=== PATIENT | male | born 1995 | race Caucasian/White ===

== ENCOUNTER 2017-01-30 02:18 | Emergency (ER) | payer OTHER ==
[~2017-01-30] VITALS: Ht 180.3 cm; Wt 74.0 kg
[2017-01-30 02:29] VITALS: TEMP 37.4; Ht 180.3 cm; Wt 74.0 kg
[2017-01-30] MEDS ORDERED: XYLOCAINE 1%/SOD BICARB 20 ML VIAL INFIL ONE (02:45)
[2017-01-30] MEDS ORDERED: ACETAMINOPHEN 500 MG TAB PO STA (03:16)
[2017-01-30] MEDS ORDERED: AMOXICIL/CLAVU 875MG HOME PACK PO ONE (05:30)
[2017-01-30] MEDS ORDERED: AMOX875T PO (05:30)
[2017-01-30 05:49] VITALS: BP 103/82; PULSE 101; O2SAT 97
--- NOTE | 2017-01-30 07:53 | DIAGNOSTIC IMAGING REPORT ---
CT SCAN OF THE FACIAL BONES WITHOUT IV CONTRAST CLINICAL HISTORY: Fall. Facial injury. COMPARISON STUDY: CT of the brain performed concurrently on 01/30/2017. TECHNIQUE: High-resolution CT scan of the facial bones is performed. Images are reviewed in the axial, sagittal, and coronal planes. IV contrast was not administered for this examination. A dose lowering technique was utilized adhering to the principles of ALARA. CT DOSE: 852.74 mGy.cm FINDINGS: The skeletal structures are well mineralized. There is no evidence of facial bone fracture. The bony orbits are intact and the orbital contents are within normal limits. The zygomatic arches, nasal bones, and pterygoid plates are preserved. The maxilla and mandible are intact. There are no layering blood products within the paranasal sinuses. The sinuses and mastoids are clear. The visualized calvarium and upper cervical spine are maintained. Partially imaged brain parenchyma is within normal limits. There is a left frontal scalp hematoma with laceration. There is left premalar and periorbital scalp contusion. IMPRESSION: 1. There is no evidence of facial bone fracture. 2. Left frontal scalp hematoma/laceration and left facial soft tissue contusion. Electronically signed by: Iglesia Martinez M.D. 01/30/2017 7:51 AM Dictated Date/Time: 01/30/2017 7:48 AM
--- NOTE | 2017-01-30 07:55 | DIAGNOSTIC IMAGING REPORT ---
CT SCAN OF THE BRAIN WITHOUT IV CONTRAST CLINICAL HISTORY: Fall. Head injury. COMPARISON STUDY: No priors. TECHNIQUE: Unenhanced axial CT scan of the brain is performed from the vertex to the skull base. A dose lowering technique was utilized adhering to the principles of ALARA. CT DOSE: Reported separately under the concurrently performed CT scan of the facial bones. FINDINGS: Brain parenchyma: The brain parenchyma is normal in appearance. There is no hemorrhage, mass effect, or evidence of acute territorial ischemia by CT criteria. Schroeder-white matter is preserved. No extra-axial fluid collection is seen. Ventricles, sulci, cisterns: Normal in configuration. Intracranial vasculature: The visualized intracranial vasculature at the skull base is normal in appearance. Calvarium: There is no depressed calvarial fracture. Soft tissues: There is a left frontal scalp hematoma. Left premalar contusion is also seen. Sinuses and mastoids: The visualized paranasal sinuses are clear. The mastoid air cells are well pneumatized. Orbits: The bony orbits are grossly intact. IMPRESSION: 1. No acute intracranial abnormality. 2. Left frontal scalp hematoma. No depressed calvarial fracture is seen. Electronically signed by: Iglesia Martinez M.D. 01/30/2017 7:54 AM Dictated Date/Time: 01/30/2017 7:52 AM
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
== END 2017-01-30 05:51 | disposition home or self-care (01) ==
LOC: C.EDB 02:23
DX: S01.81XA Laceration without foreign body of other part of head, initial encounter (principal); S01.511A Laceration without foreign body of lip, initial encounter; F17.200 Nicotine dependence, unspecified, uncomplicated; Y04.0XXA Assault by unarmed brawl or fight, initial encounter